=== PATIENT | male | born 2005 | race Hispanic/Latino ===

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

== ENCOUNTER 2024-01-29 22:31 | Emergency (ER) | payer OTHER ==
[~2024-01-29] VITALS: Ht 172.7 cm; Wt 79.2 kg
[~2024-01-29 22:31] MED LIST: CETI10CH PO
[2024-01-30 00:40] LABS: BLOOD UREA NITROGEN 12 MG/DL (9-23); CALCIUM LEVEL 9.2 MG/DL (8.5-10.1); CARBON DIOXIDE LEVEL 26 MMOL/L (20-31); CHLORIDE LEVEL 104 MMOL/L (98-107); CREATININE FOR GFR 0.88 MG/DL (0.70-1.30); GLUCOSE, FASTING 85 MG/DL (60-100); POTASSIUM SERUM 4.1 MMOL/L (3.5-5.1); SODIUM LEVEL 138 MMOL/L (136-145)
[2024-01-30 00:42] LABS: BASO # 0.1 10^3/uL (0.0-0.2); BASO % 0.4 % (0.0-1.0); EOS % 0.2 % (0.0-3.0); HEMATOCRIT 48.6 % (42.0-52.0); HEMOGLOBIN 16.4 g/dl (13.5-17.5); LYMPH # 2.6 10^3/uL (1.5-5.0); LYMPH % 20.6 % (24.0-44.0); MEAN CORPUSCULAR HEMOGLOBIN 31.4 pg (27.0-33.0); MEAN CORPUSCULAR HGB CONC 33.7 g/dl (32.0-36.5); MEAN CORPUSCULAR VOLUME 92.9 fl (80.0-96.0); MONO # 1.1 10^3/uL (0.0-0.8); MONO % 8.7 % (2.0-8.0); NEUTROPHILS # 8.6 10^3/uL (1.5-8.5); NEUTROPHILS % 69.5 % (36.0-66.0); PLATELET COUNT, AUTOMATED 230 10^3/uL (150-450); RED BLOOD COUNT 5.23 10^6/uL (4.30-6.10); WHITE BLOOD COUNT 12.4 10^3/uL (4.0-10.0)
[2024-01-30] MEDS: LIDOCAINE W/EPINEPHRINE 1% 20ML VIAL SC ONE (00:50)
[2024-01-30] MEDS: DOXYCYCLINE HYCLATE 100 MG in D5W MINI-BAG PLUS 100 ML IV ONE (00:51)
[2024-01-30] MEDS ORDERED: DOXY-323 PO (01:07)
[2024-01-30 01:49] VITALS: BP 132/62; TEMP 99; O2SAT 97
== END 2024-01-30 01:52 | disposition home or self-care (01) ==
LOC: M ED 22:31
DX: L02.414 Cutaneous abscess of left upper limb (principal); Z79.2 Long term (current) use of antibiotics

== ENCOUNTER 2024-02-24 17:38 | Emergency (ER) | payer OTHER ==
[~2024-02-24] VITALS: Ht 175.3 cm; Wt 83.0 kg
[~2024-02-24 17:38] MED LIST changes: +DOXY-323 PO
[2024-02-24 20:03] LABS: BASO % 0.4 % (0.0-1.0); EOS % 0.5 % (0.0-3.0); HEMATOCRIT 49.5 % (42.0-52.0); HEMOGLOBIN 16.9 g/dl (13.5-17.5); LYMPH # 2.5 10^3/uL (1.5-5.0); LYMPH % 30.8 % (24.0-44.0); MEAN CORPUSCULAR HEMOGLOBIN 31.6 pg (27.0-33.0); MEAN CORPUSCULAR HGB CONC 34.1 g/dl (32.0-36.5); MEAN CORPUSCULAR VOLUME 92.5 fl (80.0-96.0); MONO # 0.7 10^3/uL (0.0-0.8); MONO % 8.7 % (2.0-8.0); NEUTROPHILS # 4.8 10^3/uL (1.5-8.5); NEUTROPHILS % 59.1 % (36.0-66.0); PLATELET COUNT, AUTOMATED 213 10^3/uL (150-450); RED BLOOD COUNT 5.35 10^6/uL (4.30-6.10); WHITE BLOOD COUNT 8.2 10^3/uL (4.0-10.0)
[2024-02-24] MEDS ORDERED: [UNRECOGNIZED DRUG - CODE] (20:06)
[2024-02-24 20:21] LABS: BLOOD UREA NITROGEN 12 MG/DL (9-23); CALCIUM LEVEL 9.3 MG/DL (8.5-10.1); CARBON DIOXIDE LEVEL 29 MMOL/L (20-31); CHLORIDE LEVEL 106 MMOL/L (98-107); CREATININE FOR GFR 0.87 MG/DL (0.70-1.30); GLUCOSE, FASTING 90 MG/DL (60-100); POTASSIUM SERUM 4.4 MMOL/L (3.5-5.1); SODIUM LEVEL 139 MMOL/L (136-145)
[2024-02-24] MEDS ORDERED: DOXY100C3 PO (21:39)
[2024-02-24] MEDS ORDERED: MUPI30CR TOP (21:39)
[2024-02-24] MEDS: DOXYCYCLINE HYCLATE 100MG TABLET PO ONE (21:42)
[2024-02-24 21:50] VITALS: BP 121/72; TEMP 98.1; O2SAT 100
== END 2024-02-24 21:52 | disposition home or self-care (01) ==
LOC: M ED 17:38
DX: L02.414 Cutaneous abscess of left upper limb (principal); Z79.2 Long term (current) use of antibiotics

== ENCOUNTER 2024-05-01 17:20 | Emergency (ER) | payer OTHER ==
[~2024-05-01] VITALS: Ht 172.7 cm; Wt 84.8 kg
[~2024-05-01 17:20] MED LIST changes: -DOXY-323 PO; +DOXY-441 PO; +DOXY100C3 PO; +MUPI30CR TOP; +[UNRECOGNIZED DRUG - CODE]
[2024-05-01 20:40] VITALS: BP 133/68; TEMP 97; O2SAT 100
== END 2024-05-01 20:43 | disposition home or self-care (01) ==
LOC: M ED 17:20
DX: S60.051A Contusion of right little finger without damage to nail, initial encounter (principal); Y92.9 Unspecified place or not applicable; Y93.9 Activity, unspecified; Y99.0 Civilian activity done for income or pay